=== PATIENT | male | born 1950 ===

== ENCOUNTER 2017-04-11 09:28 | Observation (INO) ==
[2017-04-11] MEDS ORDERED: ONDANSETRON 4 MG/2 ML VIAL IV PRN ×2 (09:42→12:48)
[2017-04-11] MEDS ORDERED: NITROGLYCERIN 2% OINT 1 INCH/GM PACK TOP STA (09:42)
[2017-04-11] MEDS ORDERED: ASPIRIN 325 MG TABLET PO STA (09:42)
[2017-04-11] MEDS ORDERED: NITROGLYCERIN SL 0.4 MG TABLET SL PRN (09:42)
[2017-04-11] MEDS ORDERED: METOPROLOL TARTRATE 5 MG/5 ML VIAL IV STA (09:42)
[2017-04-11] MEDS ORDERED: ENOXAPARIN 100 MG/ML SYRINGE SUBCUT STA (09:42)
[2017-04-11] MEDS ORDERED: METOPROLOL TARTRATE 5 MG/5 ML VIAL IV ONE (09:47)
[2017-04-11] MEDS ORDERED: ENOXAPARIN 80 MG/0.8 ML SYRINGE SUBCUT ONE (09:47)
--- NOTE | 2017-04-11 09:50 | Emergency Department Note ---
Trace Hand Manpreet, am scribing for, and in the presence of, Chance Vital MD 09: 46. Zahraa Hand James D, MD, personally performed the services described in this documentation, ascribed by Jose Woodward in my presence, and it is both accurate and complete 946 . Arrival - Arrival Chief Complaint: Chest Pain Stated Complaint: chest pain ED Nursing Triage Note: L chest pressure and pain since 3am with shortness of breath he took SL nitro and was relieved enough to go back to sleep pain came back and he went to [facility] has had 324 ASA and two additional nitro and one pain pill Mode of Arrival: Stretcher Limitations: No Limitations Source: Patient, RN Notes Reviewed Time Seen by Provider: 04/11/17 09:37 - History of Present Illness HPI Narrative: Pt is a 66 y/o male, with PMHx of HTN, CAD, and FL, who is transferred from [facility] for further evaluation with CC of CP that started 0300 this AM. Pt states he took a nitro with relief but the pain persisted and worsened at 0600. Pt describes the pain as a sharp pain, similar to his previous episodes of cardiac related pain. Pt c/o SOB, diaphoresis, and numbness to his left arm. Pt deneis any melena. No other pains/complaints reported to ED. Onset (ago): hour(s) Consistency: constant Severity: moderate Severity scale (1-10): 3 Allergies/Adverse Reactions: Allergies Allergy/AdvReac Type Severity Reaction Status Date / Time morphine AdvReac Hallucinati Verified 04/12/15 10:42 ng Home Medications: Home Medications Medication Instructions Recorded Confirmed Type Aspirin [Ecotrin] 81 mg PO DAILY 04/12/15 04/11/17 History fentaNYL 50 MCG/HR PATCH 1 patch TRANSDERM Q72H 04/12/15 04/11/17 History [Duragesic 50 Patch] Clopidogrel [Plavix] 75 mg PO DAILY #30 tablet 04/14/15 04/11/17 Rx HYDROcodone/ACETAMIN 10-325 [[place] 1 tablet PO Q8H PRN #10 tablet 04/14/1504/11 Rx 10-325] Nitroglycerin Sl Tab [Nitrostat] 0.4 mg SL Q5M PRN 06/17/16 04/11/17 History Isosorbide Mononitrate [Isosorbide 60 mg PO DAILY 04/11/17 04/11/17 History Mononitrate ER] Temazepam 30 mg PO BEDTIME PRN 04/11/17 04/11/17 History amLODIPine [Norvasc] 5 mg PO DAILY 04/11/17 04/11/17 History Review of System - Review of System 12 point system: reviewed and no additional remarkable complaints except as stated - Review of System Constitutional: Present: diaphoresis. Absent: chills, fever, weakness Respiratory: Present: respiratory distress. Absent: cough Cardiovascular: Present: chest pain. Absent: dyspnea on exertion Gastrointestinal: Absent: abdominal pain, nausea, vomiting, melena Neurological: Present: numbness (Left arm). Absent: headache, paresthesias Medical,Surgical,& Family Hx - Medical History Cardio: History of: CAD, Hypertension, [place] Neurology: No history of: Seizures Endocrine: History of: Dyslipidemia Musculoskeletal: History of: Back/Neck Problems, Herniated Disk - Surgical History Cardiac Surgeries: Sugical HX of: Cardiac Catheterization (2 stents placed) - Family History Family History: Reports;: Family Cancer (DAUGHTER-COLON CA? (PT IS UNSURE) MOTHER AND FATHER_UNKNOWN), Family Hypertension (MOTHER) - Social History Smoking Status: Former smoker Exam Vital Signs: Vital Signs Temperature 97.9 F 04/11/17 09:29 Pulse Rate 65 04/11/17 09:29 Respiratory Rate 14 04/11/17 10:24 Blood Pressure 158/101 04/11/17 09:29 O2 Sat by Pulse Oximetry 100 04/11/17 09:29 GENERAL: This is a well-nourished well-developed male in no apparent distress. VITAL SIGNS: Reviewed HEENT: Head is atraumatic and normocephalic. Pupils are equal round react to light. Extraocular movements are intact. Oropharynx is benign with moist mucous membranes. NECK: Neck is soft and supple without tenderness. There are no masses. There is no lymphadenopathy. LUNGS: Lungs are clear to auscultation. Chest rises symmetrically. There is no chest wall tenderness. CV: Heart is regular rate and rhythm without murmurs rubs or gallops. ABDOMEN: Abdomen is soft, nontender to palpation. There are no abdominal abnormal masses palpated. There is no organomegaly. Bowel sounds are present and active. SKIN: Skin is warm and dry. No rash. EXTREMITIES: Patient has full range of motion without tenderness. There is no pedal edema. NEUROLOGIC: Awake alert and oriented 4. Cranial nerves II through XII are grossly intact. Motor is 5 over 5 in all extremities bilaterally. Course - Consultations Consultation #1: Discussed with Dr. Hanna. Patient will be admitted to his service. Initial orders written for him. Care will be assumed by him upon arrival to the steel. Time: 11:06 Results - Labs Lab Results: I have reviewed the patients labs Labs: Labs performed at [facility] and reviewed by me: Troponin less than 0.05 Chemistry: Sodium 141, potassium 3.6, CO2 29.8, BUN 11, creatinine 0.9, chloride 103, calcium 9.0, glucose 124 CBC: WBC 6400, hemoglobin 14.4, hematocrit 39.6, platelet count 181,000 Laboratory Tests 04/11/17 09:53 Troponin I < 0.015 - EKG EKG results: interpreted by ERMD - Impressions EKG: Normal sinus rhythm with rate of 67, normal ST-T waves, normal axis. - Diagnostic Findings Procedure: Chest x-ray: image reviewed by me (Chest x-ray performed at [facility]: Spinal stimulator in place, no infiltrates, no pleural effusions. ) Disposition Clinical Impression: Chest pain, Coronary artery disease, Essential hypertension Case discussed with: patient Disposition: Still a Patient Condition: Stable
[2017-04-11] MEDS ORDERED: NITROGLYCERIN 2% OINT 1 INCH/GM PACK TOP ONE (10:35)
[2017-04-11] MEDS ORDERED: MAGNESIUM SULF RIDER 2 GM in PREMIX 1 EACH IV PRN (12:48)
[2017-04-11] MEDS ORDERED: ACETAMINOPHEN 325 MG TABLET PO PRN (12:48)
[2017-04-11] MEDS ORDERED: fentaNYL 100 MCG/2 ML VIAL IV PRN (12:48)
[2017-04-11] MEDS ORDERED: MAGNESIUM SULF RIDER 4 GM in PREMIX 1 EACH IV PRN (12:48)
--- NOTE | 2017-04-11 12:59 | EKG Report ---
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
[2017-04-11] MEDS: NITROGLYCERIN 2% OINT 1 INCH/GM PACK TOP SCH ×2 (13:17→18:40)
[2017-04-11] MEDS: ASPIRIN 325 MG TABLET PO SCH (13:18)
--- NOTE | 2017-04-11 14:42 | EKG Report ---
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
[2017-04-11] MEDS: SODIUM CHLORIDE 0.9% 1,000 ML IV SCH (14:58)
--- NOTE | 2017-04-11 15:19 | EKG Report ---
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
--- NOTE | 2017-04-11 16:12 | Cardiology History & Physical ---
Assessment and Plan (1) Chest pain Status: Acute Assessment and plan: The patient has a known history of coronary artery disease with previous stenting on multiple occasions. He came in with chest pain symptoms. We will admit him and rule out myocardial infarction. His initial enzymes and EKG look relatively benign. Depending on results of his testing and his clinical scenario, we will consider further workup, invasive versus noninvasive. In the meantime we will continue medical management and risk factor modification. Current Visit: Yes (2) Coronary artery disease Status: Acute Current Visit: Yes (3) Essential hypertension Status: Acute Current Visit: Yes (4) CAD (coronary artery disease) Status: Acute Current Visit: No (5) Chronic pain Status: Acute Current Visit: No (6) History of coronary artery stent placement Status: Acute Current Visit: No (7) Narcotic dependence Status: Acute Current Visit: No History of Present Illness History of present illness: Mr. Vides is a 66 year old male who has a history of chronic pain on chronic narcotic therapy, coronary artery disease, hypertension, hyperlipidemia, and coronary artery disease with previous stent placement in the circumflex and LAD distributions in the past. His last stenting was done in May [address] Doran with a 3.5 x 12 mm Xience drug-eluting stent in the proximal LAD. Since that time the patient has done well. Historically he has had preserved left ventricular systolic function. The patient came to the hospital yesterday after waking up with some chest pain symptoms. This was a sharp pain in the left breast area. There were no specific exacerbating or relieving factors. There were no associated symptoms such as nausea or diaphoresis. There is no radiation of the symptoms. The symptoms persisted for an hour or so and he went to his local emergency room at the [facility]. Initial screening there was benign but because of his cardiac history he was transferred to [facility] for further workup and management. Since arrival here his chest pain has been relieved with narcotics and nitroglycerin. At the time I was seeing him was free of any symptoms. He denies any nausea, vomiting, dysphagia, gastrointestinal blood loss, fever, chills, cough, orthopnea, PND, or peripheral edema. He denies any side effects to his medications. Home Medications Medication Instructions Recorded Confirmed Type Aspirin [Ecotrin] 81 mg PO DAILY 04/12/15 04/11/17 History fentaNYL 50 MCG/HR PATCH 1 patch TRANSDERM Q72H 04/12/15 04/11/17 History [Duragesic 50 Patch] Clopidogrel [Plavix] 75 mg PO DAILY #30 tablet 04/14/15 04/11/17 Rx HYDROcodone/ACETAMIN 10-325 [[place] 1 tablet PO Q8H PRN #10 tablet 04/14/1504/11 Rx 10-325] Nitroglycerin Sl Tab [Nitrostat] 0.4 mg SL Q5M PRN 06/17/16 04/11/17 History Isosorbide Mononitrate [Isosorbide 60 mg PO DAILY 04/11/17 04/11/17 History Mononitrate ER] Temazepam 30 mg PO BEDTIME PRN 04/11/17 04/11/17 History amLODIPine [Norvasc] 5 mg PO DAILY 04/11/17 04/11/17 History Allergies Allergy/AdvReac Type Severity Reaction Status Date / Time morphine AdvReac Hallucinati Verified 04/12/15 10:42 ng 12 point system: reviewed and no additional remarkable complaints except as stated Medical,Surgical,& Family Hx - Medical History Cardio: History of: CAD, Hypertension, [place] Neurology: No history of: Seizures Endocrine: History of: Dyslipidemia Musculoskeletal: History of: Back/Neck Problems, Herniated Disk - Surgical History Cardiac Surgeries: Sugical HX of: Cardiac Catheterization (2 stents placed) - Family History Family History: Reports;: Family Cancer (DAUGHTER-COLON CA? (PT IS UNSURE) MOTHER AND FATHER_UNKNOWN), Family Hypertension (MOTHER) - Social History Smoking Status: Former smoker Frequency of Alcohol Use: None Type of Drug Use: None Cardiology Physical Exam - Constitutional Vitals: Vital Signs Temp Pulse Resp BP Pulse Ox 99.0 F 67 20 135/81 98 04/11/17 15:54 04/11/17 15:54 04/11/17 15:54 04/11/17 15:54 04/11/17 15:54 Intake and Output 04/11/17 04/11/17 04/11/17 07:59 15:59 23:59 Intake Total 720 / 720 Balance 720 / 720 Intake: Oral 720 / 720 Other: # Voids 1 # Bowel Movements 0 Weight 81.647 kg Patient Weight 04/11/17 23:59 Weight 81.647 kg Exam: General: Appears well developed, well nourished, no apparent distress HEENT: Normocephalic, atraumatic Neck: Supple Neck, Midline Trachea, No Bruit, No JVD Cardiac: Regular rhythm, No Murmur, no gallop, no rub Lungs: Clear to auscultation, No Wheeze, Rales, Rhonchi Neuro: Cranial Nerve 2-12 Intact, Motor Function Grossly Intact Abdomen: Soft, Active Bowel Sounds, No Masses, No Pulsations/Bruits Skin: Normal color, no rash Extremities: No Clubbing, No Cyanosis, No Edema, Normal Upper Extr. Pulses Musculoskeletal: No acute abnormality noted Psychiatric: The patient does not appear to be anxious or depressed Result/EKG - Labs Lab Results: I have reviewed the past 24 hour labs Labs: Laboratory Results - last 24 hr 04/11/17 04/11/17 09:53 13:25 Troponin I < 0.015 < 0.015 - EKG EKG results: interpreted by me
[2017-04-11 17:17] LABS: Risk Ratio 3.81; VLDL CHOLESTEROL 48.8 MG/DL
[2017-04-11] MEDS: ENOXAPARIN 80 MG/0.8 ML SYRINGE SUBCUT SCH (23:11)
[2017-04-12] MEDS: NITROGLYCERIN 2% OINT 1 INCH/GM PACK TOP SCH ×3 (00:36→11:54)
[2017-04-12 05:13] LABS: Basophils % 0.6 % (0.0-0.8); Eosinophils # 0.1 10*3/uL (0.0-0.87); Eosinophils % 1.3 % (0.00-10.9); Hematocrit 37.8 VOL% (42.0-52.0); Hemoglobin 13.6 GM/DL (14.0-18.0); Immature Granulocytes % 0.6 %; Immature Granulocytes Absolute 0.04 #; Lymphocytes # 2.5 10*3/uL (1.4-4.0); Lymphocytes % 36.4 % (21.2-54.2); Mean Corpuscular Hemoglobin 31 PG (27-34); Mean Corpuscular Volume 84.9 FL (87-102); Mean Platelet Volume 9.8 FL (9.6-12.0); Monocytes # 0.6 10*3/uL (0.11-0.8); Monocytes % 8.2 % (1.7-12.7); Neutrophils # 3.7 10*3/uL (1.4-7.4); Neutrophils % 52.9 % (38.7-73.9); Platelet Count 175 T/CUMM (130-400); Red Blood Count 4.45 MC/CUMM (3.8-5.5); Red Cell Distribution Width 12.2 % (9.3-17.3)
[2017-04-12 05:49] LABS: Alanine Aminotransferase 19 U/L (16-61); Albumin 3.6 G/DL (3.4-5.0); Alkaline Phosphatase 76 U/L (45-117); Aspartate Amino Transferase 13 U/L (0-37); Blood Urea Nitrogen 14 MG/DL (7-18); Calcium 8.9 MG/DL (8.5-10.1); Glucose 95 MG/DL (74-106); Magnesium 1.9 MG/DL (1.8-2.4); Osmolality,Calculated 279.4 MOS/KG (273-304); Potassium 3.6 MMOL/L (3.5-5.1); Sodium 140 MMOL/L (136-145); Total Protein 6.7 G/DL (6.4-8.3); Troponin I Only < 0.015 NG/ML (0.00-0.045)
[2017-04-12] MEDS: SODIUM CHLORIDE 0.9% 1,000 ML IV SCH (08:55)
[2017-04-12] MEDS: ENOXAPARIN 80 MG/0.8 ML SYRINGE SUBCUT SCH (09:01)
--- NOTE | 2017-04-12 11:41 | Discharge Summary ---
Hospital Course - Hospital Course Hospital Course: Mr. Vides is a 66 year old male who has a history of chronic pain on chronic narcotic therapy, coronary artery disease, hypertension, hyperlipidemia, and coronary artery disease with previous stent placement in the circumflex and LAD distributions in the past. His last stenting was done in May [address] Doran with a 3.5 x 12 mm Xience drug-eluting stent in the proximal LAD. Since that time the patient has done well. Historically he has had preserved left ventricular systolic function. The patient came to the hospital after waking up with some chest pain symptoms. This was a sharp pain in the left breast area. There were no specific exacerbating or relieving factors. There were no associated symptoms such as nausea or diaphoresis. There is no radiation of the symptoms. The symptoms persisted for an hour or so and he went to his local emergency room at the [facility]. Initial screening there was benign but because of his cardiac history he was transferred to [facility] for further workup and management. After arrival here, he has had no further symptoms. He denies any nausea, vomiting, dysphagia, gastrointestinal blood loss, fever, chills, cough, orthopnea, PND, or peripheral edema. He denies any side effects to his medications. The patient was admitted on Thursday and ruled out for myocardial infarction. All of his cardiac enzymes were negative. His EKG did not show any acute changes. The patient is feeling back to normal and wishes to go home. Given his low risk inpatient screening I think that is reasonable. However, I will set him up to follow with Dr. Doran. He may need a outpatient cardiac ischemic screen , and he may need referral to a vascular surgeon because a recent CT angiogram of his carotids which had been done as an outpatient showed significant disease. Here other pertinent findings of his recent outpatient CT arteriogram. This was apparently ordered by Dr. Smith because of headaches. Impression: 1. 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 2. 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 Small 2.9 mm outpouching where the right A1 segment would join the anterior communicating origin, likely represents a tiny aneurysm. Consider [address] angiogram. 3. No specific abnormality identified in the left temporal parietal or parieto-occipital region. Variant anatomy of the [place] noted with no right posterior communicating artery identified, left OCCUPATIONAL NURSE inflow entirely dependent on left posterior communicating artery, and a relatively small basilar artery. Diagnosis - Discharge Diagnosis (1) Chest pain Status: Acute (2) Coronary artery disease Status: Acute (3) Essential hypertension Status: Acute (4) CAD (coronary artery disease) Status: Acute (5) Chronic pain Status: Acute (6) History of coronary artery stent placement Status: Acute (7) Narcotic dependence Status: Acute Discharge Plan - Discharge Data Disposition: Disch To Home/Self Care - Discharge Medications Continue Aspirin [Ecotrin] 81 mg PO DAILY fentaNYL 50 MCG/HR PATCH [Duragesic 50 Patch] 1 patch TRANSDERM Q72H HYDROcodone/ACETAMIN 10-325 [[place] 10-325] 1 tablet PO Q8H PRN #10 tablet PRN Reason: Pain Clopidogrel [Plavix] 75 mg PO DAILY #30 tablet Nitroglycerin Sl Tab [Nitrostat] 0.4 mg SL Q5M PRN PRN Reason: Chest Pain Isosorbide Mononitrate [Isosorbide Mononitrate ER] 60 mg PO DAILY amLODIPine [Norvasc] 5 mg PO DAILY Temazepam 30 mg PO BEDTIME PRN PRN Reason: Sleep - Follow Up or Referral Follow Up: Tremayne Doran MD [Physician] - (1-2 weeks with EKG) - Forms/Instructions Exam - Constitutional Vitals: Period Temp Pulse Resp BP Sys/[place] Pulse Ox Last 24 Hr 97.2 F-99.0 F 57-67 18-20 115-158/60-88 92-100 Discharge Results Labs on day of discharge: Labs from last 24 hours 04/12/17 04/12/17 04/11/17 04:24 04:24 16:31 WBC 7.0 RBC 4.45 Hgb 13.6 L Hct 37.8 L MCV 84.9 L MCH 31 MCHC 36.0 RDW 12.2 Plt Count 175 MPV 9.8 Neut % (Auto) 52.9 Lymph % (Auto) 36.4 [place] % (Auto) 8.2 Eos % (Auto) 1.3 Baso % (Auto) 0.6 Neut # (Auto) 3.7 Lymph # (Auto) 2.5 [place] # (Auto) 0.6 Eos # (Auto) 0.1 Baso # (Auto) 0.0 Immature Gran % 0.6 Nucleated RBC % 0.0 Immature Gran # 0.04 Nucleated RBCs # 0.00 Sodium 140 Potassium 3.6 Chloride 105 Carbon Dioxide 29 Anion Gap 9.6 BUN 14 Creatinine 0.70 GFR Calculation 111 BUN/Creatinine Ratio 20.00 Glucose 95 Calculated Osmolality 279.4 Calcium 8.9 Magnesium 1.9 Total Bilirubin 0.70 AST 13 ALT 19 Alkaline Phosphatase 76 Total Creatine Kinase 58 CK-MB (CK-2) < 1.0 Troponin I < 0.015 Total Protein 6.7 Albumin 3.6 Globulin 3.1 Albumin/Globulin Ratio 1.1 Triglycerides 244 H Cholesterol 160 LDL Cholesterol 83.0 VLDL Cholesterol 48.8 HDL Cholesterol 42 Heart Disease Risk Ratio 3.81 04/11/17 04/11/17 16:31 13:25 WBC RBC Hgb Hct MCV MCH MCHC RDW Plt Count MPV Neut % (Auto) Lymph % (Auto) [place] % (Auto) Eos % (Auto) Baso % (Auto) Neut # (Auto) Lymph # (Auto) [place] # (Auto) Eos # (Auto) Baso # (Auto) Immature Gran % Nucleated RBC % Immature Gran # Nucleated RBCs # Sodium Potassium Chloride Carbon Dioxide Anion Gap BUN Creatinine GFR Calculation BUN/Creatinine Ratio Glucose Calculated Osmolality Calcium Magnesium Total Bilirubin AST ALT Alkaline Phosphatase Total Creatine Kinase CK-MB (CK-2) Troponin I < 0.015 < 0.015 Total Protein Albumin Globulin Albumin/Globulin Ratio Triglycerides Cholesterol LDL Cholesterol VLDL Cholesterol HDL Cholesterol Heart Disease Risk Ratio DS: Provider Date of admission: 04/11/17 11:11 Primary care physician: Rosina Donoavn MD Attending physician on admission: Praveen Hanna MD Discharging clinician: Praveen aHnna MD
[2017-04-12] MEDS: ASPIRIN 325 MG TABLET PO SCH (11:54)
[2017-04-12 12:00] VITALS: BP 135/76
== END 2017-04-12 14:15 | disposition home or self-care (01) ==
LOC: EDUNIT# → EDBD → N.ED 09:28 → N.EDINP 09:28 → N.TELES 13:14
PROVIDERS: ADMIT Internal Medicine Cardiovascular Disease; ATTEND Internal Medicine Cardiovascular Disease

== ENCOUNTER 2017-05-05 15:00 | Inpatient (IN) ==
[2017-05-05] MEDS ORDERED: ONDANSETRON 4 MG/2 ML VIAL IV PRN (18:49)
[2017-05-05] MEDS ORDERED: ACETAMINOPHEN 325 MG TABLET PO PRN (18:49)
[2017-05-05] MEDS ORDERED: ENOXAPARIN 40 MG/0.4 ML SYRINGE SUBCUT SCH (19:00)
[2017-05-05] MEDS ORDERED: NITROGLYCERIN SL 0.4 MG TABLET SL PRN (19:03)
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
[2017-05-05] MEDS: SODIUM CHLORIDE 0.45% 1,000 ML IV SCH (19:20)
--- NOTE | 2017-05-05 19:34 | EKG Report ---
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
[2017-05-05 19:50] LABS: Free T4 (Free Thyroxine) 1.15 NG/DL (0.76-1.46); Troponin I Only < 0.015 NG/ML (0.00-0.045)
[2017-05-05] MEDS: KETOROLAC 15 MG/1 ML VIAL IV PRN (20:01)
[2017-05-05] MEDS: amLODIPine 5 MG TABLET PO SCH (20:14)
[2017-05-05] MEDS: ISOSORBIDE MONONITRATE 60 MG TABLET PO SCH (20:14)
--- NOTE | 2017-05-06 02:47 | EKG Report ---
Stationary ECG Study [facility] Test Date: 05/05/2017 10:26:33 PM Pat Name: ZORAN CHILDRESS Department: Room: 120 Gender: M Digital Director: : 1950 Requested by: Jodi Cervantes Order Number: [id number] Reading MD: DAVID RYDER Intervals [place] Rate: 59 P: 40 NM: 196 QRS: 24 QRSD: 92 T: 55 QT: 401 QTc: 400 Interpretive Statements SINUS RHYTHM NONSPECIFIC T-WAVE ABNORMALITY Electronically Signed On 05-06-17 07:28:56 CDT by DAVID RYDER [email or web address]
[2017-05-06] MEDS: KETOROLAC 15 MG/1 ML VIAL IV PRN ×2 (02:59→10:00)
[2017-05-06] MEDS: SODIUM CHLORIDE 0.45% 1,000 ML IV SCH ×2 (02:59→10:01)
[2017-05-06 05:36] LABS: Basophils % 0.4 % (0.0-0.8); Eosinophils # 0.1 10*3/uL (0.0-0.87); Eosinophils % 1.4 % (0.00-10.9); Hemoglobin 13.4 GM/DL (14.0-18.0); Immature Granulocytes % 0.7 %; Immature Granulocytes Absolute 0.05 #; Lymphocytes # 1.6 10*3/uL (1.4-4.0); Lymphocytes % 23.2 % (21.2-54.2); Mean Corpuscular HGB Conc 35.3 GM/DL (32-36); Mean Corpuscular Hemoglobin 31 PG (27-34); Mean Corpuscular Volume 87.2 FL (87-102); Mean Platelet Volume 9.4 FL (9.6-12.0); Monocytes # 0.7 10*3/uL (0.11-0.8); Monocytes % 9.4 % (1.7-12.7); Neutrophils # 4.6 10*3/uL (1.4-7.4); Neutrophils % 64.9 % (38.7-73.9); Platelet Count 184 T/CUMM (130-400); Red Blood Count 4.36 MC/CUMM (3.8-5.5); Red Cell Distribution Width 12.5 % (9.3-17.3)
[2017-05-06 05:39] LABS: PT Patient Result 10.7 SECS
[2017-05-06 06:09] LABS: Albumin 3.3 G/DL (3.4-5.0); Bilirubin,Total 0.7 MG/DL (0.2-1.0); Calcium 8.8 MG/DL (8.5-10.1); Osmolality,Calculated 274.7 MOS/KG (273-304); Potassium 3.5 MMOL/L (3.5-5.1); Risk Ratio 4.86; Total Protein 6.6 G/DL (6.4-8.3); VLDL CHOLESTEROL 43.8 MG/DL
[2017-05-06] MEDS ORDERED: amLODIPine 5 MG TABLET PO SCH (09:00)
[2017-05-06] MEDS ORDERED: ISOSORBIDE MONONITRATE 60 MG TABLET PO SCH (09:00)
[2017-05-06] MEDS ORDERED: METOPROLOL SUCCINATE XL 50 MG TABLET PO SCH (09:00)
[2017-05-06] MEDS: CLOPIDOGREL 75 MG TABLET PO SCH (09:52)
[2017-05-06] MEDS: PANTOPRAZOLE 40 MG TABLET PO SCH (09:52)
[2017-05-06] MEDS: ASPIRIN EC 81 MG TABLET PO SCH (09:52)
[2017-05-06] MEDS: ATORVASTATIN 20 MG TABLET PO SCH (09:52)
[2017-05-06] MEDS: amLODIPine 5 MG TABLET PO SCH (09:52)
[2017-05-06] MEDS: ISOSORBIDE MONONITRATE 60 MG TABLET PO SCH (09:52)
--- NOTE | 2017-05-06 12:00 | ECHO Report ---
Asa Vides Exam Date: 05/06/2017 09:29 Referring Physician: Technologist: Sheila Piedra RDCS Age: 66 Ht (in): 67 Wt (lb): 175 Gender: M Exam [facility]: [facility] Echo Indications: Syncope and collapse, Altered mental status, Bilateral carotid stenosis, Essential (primary) hypertension, Nicotine dependence, cigarettes, uncomplicated, Chronic fatigue, unspecified, CAD with previous stents BP: 132 / 80 HR: 76 Rhythm: Sinus Technical Quality: IMPRESSIONS Mild to 2+ left ventricular hypertrophy. Left ventricular ejection fraction is estimated at 55 %. MEASUREMENTS (Male / Female) Normal Values 2D ECHO LV Diastolic Diameter PLAX 4.1 cm 4.2 - 5.9 / 3.9 - 5.3 cm LV Systolic Diameter PLAX 2.9 cm LV Fractional Shortening PLAX 30.3 % IVS Diastolic Thickness 1.2 cm 0.6 - 1.0 / 0.6 - 0.9 cm LVPW Diastolic Thickness 1.1 cm 0.6 - 1.0 / 0.6 - 0.9 cm RV Internal Dim ED PLAX 2.3 cm Aortic Root Diameter 3.7 cm LA Systolic Diameter LX 3.1 cm 3.0 - 4.0 / 2.7 - 3.8 cm FINDINGS Left Ventricle Normal left ventricular cavity size. Mild to 2+ left ventricular hypertrophy. Left ventricular ejection fraction is estimated at 55 %. Right Ventricle The right ventricle is normal in size and function. Right Atrium The right atrium is normal in size. Left Atrium The left atrium is normal in size. Mitral Valve Morphologically normal mitral valve without significant stenosis or prolapse. There is no mitral regurgitation. Aortic Valve Morphologically normal aortic valve without significant sclerosis or stenosis. There is no aortic regurgitation. Tricuspid Valve Morphologically normal tricuspid valve without significant stenosis or regurgitation. Pulmonary artery systolic pressure is normal. Pulmonic Valve Morphologically normal pulmonic valve without significant stenosis. There is no pulmonic regurgitation. Pericardium Normal pericardium without effusion. Aorta Normal ascending aorta dimension. Reji Del Valle MD (Electronically Signed) Final Date: 06 May 2017 11:59
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
--- NOTE | 2017-05-06 14:56 | Ultrasound Report ---
US carotid duplex BI Indication: Possible stenosis. Comparison: Carotid ultrasound dated April 22, 2014. Technique: Multiple longitudinal and transverse real-time sonographic images of the bilateral carotid arterial systems are obtained with grayscale, spectral, and color Doppler analysis. Findings: Peak systolic velocities within the right CCA, proximal ICA, and distal ICA are 46, 51, and 62 cm/s respectively. Peak systolic velocities within the left CCA, proximal ICA, and distal ICA are 69, 81, and 60 cm/s respectively. ICA/CCA ratios on the right and left are 1.4 and 1.2 respectively. Antegrade flow demonstrated within the bilateral vertebral arteries. Grayscale imaging demonstrates mild bilateral atherosclerotic plaque. IMPRESSION: No convincing sonographic evidence of significant (50% or greater) narrowing of either cervical internal carotid artery. Indirect NASCET criteria utilized. PROCEDURE INTERPRETED AT [facility] DEPARTMENT OF RADIOLOGY Final Report Signed by: Dr Ilir Rodriguez
--- NOTE | 2017-05-06 16:07 | Hospitalist Progress Note ---
Assessment and Plan - Time spent with patient Time spent with patient: Greater than 30 minutes (1) Altered mental status Status: Acute Assessment and plan: 05/06/2017: I suspect that patient's altered mental status related to polypharmacy medication effects. Patient wears topical Duragesic takes [place] 3 or 4 doses daily and yesterday added Restoril 30 mg. This medication combination likely explains patient's increased somnolence. Near syncope workup ordered by admitting physician. Follow-up O's test results. I appreciate review by consulting vascular surgeon to evaluate internal carotid artery stenosis treatment options. Patient's serum ammonia level was slightly elevated at 51. I doubt that he has a significant component of hepatic encephalopathy. Current Visit: Yes (2) Bilateral carotid artery stenosis Status: Chronic Assessment and plan: 05/06/2017: This condition is not likely causally related to increased somnolence yesterday. Follow-up carotid ultrasound report. Continue neuro checks and clinical monitoring. Continue telemetry monitoring also. Current Visit: Yes (3) CAD (coronary artery disease) Status: Chronic Assessment and plan: 05/06/2017: Patient does not complain of acute exertional chest pain pressure tightness or fullness. Continue telemetry and clinical monitoring. Transthoracic echocardiogram reported LVEF 55%; LVH reported. No regional wall motion abnormalities reported. Continue telemetry monitoring cycle cardiac enzymes. Low clinical suspicion for acute coronary syndrome. Patient has history of LAD stent June 17, 2016. Current Visit: No (4) Chronic pain Status: Chronic Assessment and plan: 05/06/2017: Patient reports that he has an intrathecal pain pump but no longer functions. He states that the reservoir is empty and he has not been able to find a doctor willing to remove the hardware. He reports that he has lumbar disc disease and requires chronic narcotic medications as outlined above. Current Visit: Yes (5) Dyslipidemia Status: Chronic Assessment and plan: 05/06/2017: Fasting lipid panel: Total cholesterol 175, LDL 103, HDL 36, triglycerides 219 Patient receives Lipitor 40 mg p.o. every afternoon. He may be a candidate for intensive statin therapy. Target LDL less than 100 or perhaps less than 70. Current Visit: Yes (6) Daytime sleepiness Status: Chronic Assessment and plan: 05/06/2017: As stated above the primary cause of patient's excess somnolence likely related to polypharmacy medication effects. There is some question with the patient might also have obstructive sleep apnea. Recommend outpatient follow-up with his primary care provider possible polysomnogram exam to address that concern. Both patient's TSH and free T4 levels measure within normal range. Patient lives with his daughter Kiana. Phone #[phone]. Current Visit: Yes Hospitalist: Subjective Interval history: 05/06/2017: Patient is awake, alert, and fully oriented at the time of my interview and exam today. He states that he does not recall specific details why he was transported to this hospital yesterday. He remembers visiting his primary care clinic and that they recommended that he come to the hospital but he cannot remember why they made that recommendation or how he arrived here. Exam - Constitutional Vitals: Period Temp Pulse Resp BP Sys/Portillo Pulse Ox Last 24 Hr 97.3 F-98.0 F 60-80 12-64 110-172/73-96 96-100 General appearance: over weight - Head Head exam: Present: normal inspection, normocephalic, atraumatic - Eye Eye exam: Present: EOMI - ENT ENT exam: Present: normal exam - Neck Neck exam: Absent: meningismus, tenderness - Respiratory Respiratory exam: Present: clear to auscultation bilaterally. Absent: rales, stridor, wheezes - Cardiovascular Cardiovascular exam: Present: regular rate and rhythm, other (No extrasystole noted) - GI/Abdominal GI/Abdominal exam: Present: normal bowel sounds, distended, soft. Absent: tenderness, rebound - Extremities Exam Extremities exam: Absent: calf tenderness - Back Exam Back exam: Absent: CVA tenderness (L), CVA tenderness (R) - Neurological Exam Neurological exam: Present: alert, oriented X3 - Psychiatric Psychiatric exam: Present: normal affect - Skin Skin exam: Present: normal color, warm. Absent: rash Results - Labs CBC & BMP: 05/06/17 04:25 05/06/17 04:25
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
[2017-05-07] MEDS: SODIUM CHLORIDE 0.45% 1,000 ML IV SCH ×2 (00:10→06:21)
[2017-05-07 05:26] LABS: Basophils % 0.5 % (0.0-0.8); Eosinophils # 0.1 10*3/uL (0.0-0.87); Eosinophils % 1.2 % (0.00-10.9); Hematocrit 36.7 VOL% (42.0-52.0); Hemoglobin 12.9 GM/DL (14.0-18.0); Immature Granulocytes % 0.5 %; Immature Granulocytes Absolute 0.03 #; Lymphocytes # 1.7 10*3/uL (1.4-4.0); Lymphocytes % 28.9 % (21.2-54.2); Mean Corpuscular HGB Conc 35.1 GM/DL (32-36); Mean Corpuscular Hemoglobin 31 PG (27-34); Mean Platelet Volume 9.3 FL (9.6-12.0); Monocytes # 0.5 10*3/uL (0.11-0.8); Monocytes % 9.4 % (1.7-12.7); Neutrophils # 3.4 10*3/uL (1.4-7.4); Neutrophils % 59.5 % (38.7-73.9); Platelet Count 186 T/CUMM (130-400); Red Blood Count 4.22 MC/CUMM (3.8-5.5); Red Cell Distribution Width 12.6 % (9.3-17.3); White Blood Count 5.8 T/CUMM (4-12)
[2017-05-07 05:53] LABS: Albumin 3.2 G/DL (3.4-5.0); Bilirubin,Total 0.4 MG/DL (0.2-1.0); Calcium 8.6 MG/DL (8.5-10.1); Osmolality,Calculated 284.8 MOS/KG (273-304); Potassium 3.8 MMOL/L (3.5-5.1); Total Protein 6.2 G/DL (6.4-8.3)
[2017-05-07 05:56] LABS: PT Patient Result 10.5 SECS
[2017-05-07 08:12] VITALS: BP 174/98
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
[2017-05-07] MEDS: CLOPIDOGREL 75 MG TABLET PO SCH (08:53)
[2017-05-07] MEDS: PANTOPRAZOLE 40 MG TABLET PO SCH (08:53)
[2017-05-07] MEDS: amLODIPine 5 MG TABLET PO SCH (08:53)
[2017-05-07] MEDS: ASPIRIN EC 81 MG TABLET PO SCH (08:53)
[2017-05-07] MEDS: ISOSORBIDE MONONITRATE 60 MG TABLET PO SCH (08:53)
[2017-05-07] MEDS: ATORVASTATIN 20 MG TABLET PO SCH (08:53)
[2017-05-07] MEDS ORDERED: PNEUMOCOCCAL VACCINE (13 VALENT) 0.5 ML SYRINGE IM ONE (09:00)
--- NOTE | 2017-05-07 10:13 | Event Note ---
As noted in Dr. Talbert's discharge summary the duplex scan indicates less than 50 % stenosis of either of the carotid bifurcations this we have no extracranial carotid disease that would indicate a need for follow-up or intervention.
== END 2017-05-07 11:04 | disposition home or self-care (01) | DRG 918 ==
LOC: N.CC 17:25 → SUATTDRO 05-06 12:28 → N.4E 05-06 16:05
PROVIDERS: ADMIT Internal Medicine; ATTEND Internal Medicine